=== PATIENT | male | born 1965 | race Caucasian/White ===

== ENCOUNTER 2018-06-15 03:14 | Emergency (ER) | payer MEDICAID ==
[~2018-06-15] VITALS: Ht 175.3 cm; Wt 81.8 kg
[~2018-06-15 03:14] MED LIST: BACI30OI6 TP; DSS100 PO; HYDR-309 PO; MULT1CAP32 PO
[2018-06-15] MEDS ORDERED: LIDOCAINE 1% 10 ML VIAL INJ ONE (04:30)
[2018-06-15] MEDS ORDERED: POVIDONE-IODINE 10% 15 ML SOLUTION UD ONE (04:34)
[2018-06-15] MEDS ORDERED: KETOROLAC TROMETHAMINE 60 MG/2 ML VIAL IM ONE (05:00)
[2018-06-15] MEDS ORDERED: CefTRIAXone SODIUM 1 GM/VIAL IM ONE (05:00)
[2018-06-15] MEDS ORDERED: LIDOCAINE/PF 1% 2 ML VIAL IM ONE (05:00)
[2018-06-15 06:09] VITALS: BP 121/73
== END 2018-06-15 06:16 | disposition home or self-care (01) ==
LOC: EMS 03:16
DX: S02.602A Fracture of unspecified part of body of left mandible, initial encounter for closed fracture (principal); M27.2 Inflammatory conditions of jaws; F11.90 Opioid use, unspecified, uncomplicated; V19.9XXA Pedal cyclist (driver) (passenger) injured in unspecified traffic accident, initial encounter; Y93.89 Activity, other specified; Y92.89 Other specified places as the place of occurrence of the external cause; Y99.8 Other external cause status
CPT/HCPCS: 10060; 70486; 87070; 96372; 99284; J0696; J1885; J3490 ×2

== ENCOUNTER 2018-06-17 16:55 | Emergency (ER) | payer MEDICAID ==
[~2018-06-17] VITALS: Ht 177.8 cm; Wt 81.8 kg
[2018-06-17 19:35] VITALS: BP 123/70
== END 2018-06-17 19:59 | disposition home or self-care (01) ==
LOC: EMS 16:56
DX: Z48.00 Encounter for change or removal of nonsurgical wound dressing (principal)

== ENCOUNTER 2019-09-18 13:58 | Emergency (ER) | payer MEDICAID, OTHER ==
[~2019-09-18] VITALS: Ht 177.8 cm; Wt 79.5 kg
[2019-09-18] MEDS ORDERED: POVIDONE-IODINE 10% 15 ML SOLUTION UD TP ONE (14:45)
[2019-09-18 15:00] VITALS: BP 133/76
== END 2019-09-18 15:46 | disposition home or self-care (01) ==
LOC: EMS 14:01
DX: L03.113 Cellulitis of right upper limb (principal); L02.511 Cutaneous abscess of right hand; R03.0 Elevated blood-pressure reading, without diagnosis of hypertension; F11.90 Opioid use, unspecified, uncomplicated
CPT/HCPCS: 10060; Z7502